=== PATIENT | female | born 1995 | race Caucasian/White ===

== ENCOUNTER → 2018-01-30 10:46 | Outpatient (CLI) | payer OTHER, SELFPAY ==
--- NOTE | 2018-01-30 10:49 | RAD_ITS ---
STUDY: X-RAY CHEST REASON FOR EXAM: Female, 22 years old. Cough and shortness of breath. TECHNIQUE: PA and lateral views of the chest. COMPARISON: None. FINDINGS: The lungs are clear and expanded. Scattered calcified granulomas. There is no demonstrated pleural abnormality. Normal size heart. Normal mediastinum and ivonne. Normal visualized pulmonary arteries. Normal visualized aortic arch and descending thoracic aorta. Normal visualized thoracic spine. Normal visualized ribs, clavicles, and shoulders. There is no demonstrated abnormality of the visualized soft tissue structures of the upper abdomen. RAD/Chest PA and Lateral IMPRESSION: Normal x-ray examination of the chest. Electronically Signed: Hari Mcduffie MD at 11:13 EDT Tel [phone], Service support ,
== END ==
PROVIDERS: Family Provider Pediatrics; PCP Pediatrics; Visit Provider Nurse Practitioner Pediatrics
DX: R05 Cough (principal)
CPT/HCPCS: 71046

== ENCOUNTER 2020-01-22 15:22 | Emergency (ER) | payer OTHER, SELFPAY ==
[2020-01-22 15:24] VITALS: BP 117/89; PULSE 119; RESP 16; TEMP 37.2; O2SAT 97; BMI 23.1
[2020-01-22] MEDS: Ibuprofen 600 MG Tablet PO (15:50)
--- NOTE | 2020-01-22 15:57 | RAD_ITS ---
STUDY: X-RAY CHEST REASON FOR EXAM: Female, 24 years old. FEVER, ANXIOUS, CHEST TIGHTNESS, SOB X2 DAYS TECHNIQUE: PA and lateral views of the chest. COMPARISON: Previous study of 01/30/2018 FINDINGS: The lungs are clear and expanded. There is no demonstrated pleural abnormality. Normal size heart. Normal mediastinum and ivonne. Normal visualized pulmonary arteries. Normal visualized aortic arch and descending thoracic aorta. Normal visualized thoracic spine. Normal visualized ribs, clavicles, and shoulders. There is no demonstrated abnormality of the visualized soft tissue structures of the upper abdomen. RAD/Chest PA and Lateral IMPRESSION: Normal x-ray examination of the chest. Electronically Signed: Juanpablo Corona MD at 16:24 EDT , Service support ,
[2020-01-22 16:03] LABS: Bacteria 0 SEEN /hpf (None Seen); Mucous, Urine 0 SEEN /hpf (<or=2+); Red Blood Cells-Urine 0 SEEN /hpf (0-5); White Blood Cells 0 SEEN /hpf (0-5)
[2020-01-22 16:09] LABS: Color, Urine Yellow (Yellow); Glucose, Dipstick Normal (Normal); Ketone-Dipstick Negative (Negative); Leukocyte Esterase-Dipstick Negative /ul (Negative); Nitrite-Dipstick Negative (Negative); Occult Blood-Urine Negative /ul (Negative); Protein-Dipstick Negative (Negative); Urine Bilirubin Dipstick Negative (Negative); Urine Clarity Sl. Cloudy (Clear); Urine Urobilinogen Normal (Normal)
[2020-01-22 16:10] LABS: Internal QC Validated? YES +Cl - CLEAR BKGD; Pregnancy, Urine Negative Negative
[2020-01-22 16:28] LABS: Squamous Epithelial Cells - UA 0-5 SEEN /hpf (5-10)
--- NOTE | 2020-01-22 16:40 | ED.VIS.GEN ---
History of Present Illness Chief Complaint: Fever Informant: Patient Onset: Today Context: Gradual Onset Timing: Intermittent Current Severity: Mild Maximum Severity: Mild Narrative: The patient is an otherwise healthy 24-year-old female with history of anxiety that presents to the emergency department with fever. Patient states she woke this morning and had some chills. She states took her temperature was 99.7. She did not take anything for the fever. She states that she felt like the fever broke because she began to sweat. The patient was concerned because she does have a job interview tomorrow. She denies chest pain. She denies shortness of breath. She has no known COVID-19 exposure. She is otherwise been in her normal state of health. Prior similar symptoms: No Recent Illness/Hospitalization: No Past Medical History - Allergies and Home Meds Allergies/Adverse Reactions: Allergies No Known Allergies Allergy (Verified 01/22/20 15:24) Primary Care Physician: Sayda Traore MD [Primary Care Provider] - Prior records reviewed: Yes Past Medical History: - - Anxiety Surgical History: noncontributory Smoking Status: Former smoker Review of Systems General: Reports: Fever, Malaise. Denies: Chills, Sweats Eyes: Denies: Visual changes - bilaterally, Diplopia ENT: Denies: Rhinorrhea, Sore throat Cardiovascular: Denies: Chest pain, Palpitations Respiratory: Denies: Dyspnea, Cough, Dyspnea on exertion Gastrointestinal: Denies: Abdominal pain, Nausea, Vomiting, Diarrhea, Melena, Hematochezia Genitourinary: Denies: Dysuria, Hematuria, Frequency Musculoskeletal: Denies: Back pain, Extremity Pain Skin: Denies: Rash, Wounds Neurological: Denies: Headache, Weakness, Numbness Physical Exam Vital Signs/Narrative: Vital Signs Temp Pulse Resp BP Pulse Ox 01/22/20 15:24 99.0 F 119 H 16 117/89 H 97 Inital Vital Signs reviewed: Yes General: Well nourished, Well developed, No Acute Distress Head: Normocephalic, Atraumatic Eyes: Perrl, EOMI ENT: Moist mucous membranes, No rhinorrhea Neck: Supple, Nontender Cardiovascular: Regular rate, Regular rhythm, No murmurs Respiratory: No distress, CTA bilaterally, Chest nontender Abdomen: Soft, Nontender, Nondistended, Normal bowel sounds Back: Nontender, Normal Inspection Extremities: Nontender, No edema Skin: Normal color, No rash Neurological: Alert, Oriented x3, Cranial nerves II-XII grossly intact, Normal Strength, Normal Sensation Psychological: Normal affect, Normal Mood Diagnostic/Tx/Re-eval Clinical Impression(s) from Imaging Studies Chest X-Ray 01/22/20 15:57 IMPRESSION: Normal x-ray examination of the chest. Electronically Signed: Juanpablo Corona MD at 16:24 EDT , Service support , - Medical Decision Making The patient is very well-appearing. She is afebrile here. She was given Motrin. She was observed. I did obtain chest x-ray with her scant cough. This was negative. Urine was also negative for infection. Patient was observed. She had resolution of her tachycardia. She is resting comfortably. At this point, I do not suspect a dangerous process. Patient was counseled on supportive care. She will be discharged home. Impression 1. Febrile illness ED Disposition - Plan for ED Patient: Instructions: ED Fever Control (Adult) Referrals: Sayda Traore MD [Primary Care Provider] -
[2020-01-22 16:54] VITALS: RESP 18; TEMP 37.1
== END 2020-01-22 16:55 | disposition home or self-care (01) ==
LOC: ED 16:00
PROVIDERS: Emergency Provider Emergency Medicine; PCP Pediatrics
DX: R50.9 Fever, unspecified (principal); R00.0 Tachycardia, unspecified; R05 Cough; F41.9 Anxiety disorder, unspecified; Z79.899 Other long term (current) drug therapy; Z87.891 Personal history of nicotine dependence
CPT/HCPCS: 71046; 81001; 81025; 99283

== ENCOUNTER 2020-05-02 18:22 | Emergency (ER) | payer OTHER, SELFPAY ==
[2020-05-02 18:25] VITALS: BP 122/81; PULSE 100; RESP 17; TEMP 36.2; O2SAT 98; BMI 23.1
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
[2020-05-02] MEDS: Ibuprofen 600 MG Tablet PO (19:09)
[2020-05-02] MEDS: Lidocaine 5% Patch 1 PATCH TOPICAL (19:09)
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
== END 2020-05-02 21:27 | disposition home or self-care (01) ==
PROVIDERS: Emergency Provider Student in an Organized Health Care Education/Training Program; PCP Student in an Organized Health Care Education/Training Program
DX: S16.1XXA Strain of muscle, fascia and tendon at neck level, initial encounter (principal); S39.012A Strain of muscle, fascia and tendon of lower back, initial encounter; R20.2 Paresthesia of skin; V89.2XXA Person injured in unspecified motor-vehicle accident, traffic, initial encounter; Y93.9 Activity, unspecified; Y92.9 Unspecified place or not applicable; Y99.9 Unspecified external cause status; Z79.899 Other long term (current) drug therapy
CPT/HCPCS: 72040; 72100; 99283

== ENCOUNTER 2020-10-18 08:47 | Emergency (ER) | payer SELFPAY ==
[2020-10-18 08:52] VITALS: BP 120/80; PULSE 143; RESP 17; TEMP 36.7; O2SAT 94; BMI 22.3
--- NOTE | 2020-10-18 09:10 | RAD_ITS ---
STUDY: X-RAY - LEFT FOOT CLINICAL: Female, 25 years old. Injury TECHNIQUE: 3 view(s) of the foot. COMPARISON: None. FINDINGS: There is no evidence of fracture or dislocation. There are no significant degenerative changes. There are no radiodense foreign bodies. RAD/Foot min 3 Views IMPRESSION: No fracture or dislocation. Electronically Signed: Lui Woodward MD at 9:23 EDT Tel , Service support ,
--- NOTE | 2020-10-18 09:37 | ED.DCSUM_ITS ---
History of Present Illness Chief Complaint: Lower Extremity Injury Informant: Patient Narrative: Patient sustained a left foot injury last evening. She was in a crouched position and her dog pulled her forward which resulted in a forced plantar flexion of her toes and foot. She notes some mild swelling. She notes pain with ambulation. Past Medical History - Allergies and Home Meds Allergies/Adverse Reactions: Allergies No Known Allergies Allergy (Verified 10/18/20 08:48) Primary Care Physician: Charlie Germain [Primary Care Provider] - Past Medical History: None Surgical History: noncontributory Lives: With Family Smoking Status: Former smoker Alcohol: None Drugs: None Review of Systems General: Denies: Chills, Fever, Sweats Eyes: Denies: Visual changes - bilaterally, Diplopia ENT: Denies: Rhinorrhea, Sore throat Cardiovascular: Denies: Chest pain, Palpitations Respiratory: Denies: Dyspnea, Cough, Dyspnea on exertion Gastrointestinal: Denies: Abdominal pain, Nausea, Vomiting, Diarrhea, Melena, Hematochezia Genitourinary: Denies: Dysuria, Hematuria, Frequency Musculoskeletal: Reports: Extremity Pain. Denies: Back pain Skin: Denies: Rash, Wounds Neurological: Denies: Headache, Weakness, Numbness Physical Exam Vital Signs/Narrative: Vital Signs Temp Pulse Resp BP Pulse Ox 10/18/20 08:52 98.1 F 143 H 17 120/80 94 Inital Vital Signs reviewed: Yes General: Well nourished, Well developed, No Acute Distress Head: Normocephalic, Atraumatic Eyes: Perrl, EOMI ENT: Moist mucous membranes, No rhinorrhea Neck: Supple, Nontender Cardiovascular: Regular rate, Regular rhythm, No murmurs Respiratory: No distress, CTA bilaterally, Chest nontender Abdomen: Soft, Nontender, Nondistended, Normal bowel sounds Back: Nontender, Normal Inspection Extremities: Tenderness - Tenderness over the forefoot on the left. Mild swell ing. No obvious deformity. Neurovascular intact Skin: Normal color, No rash Neurological: Alert, Oriented x3, Cranial nerves II-XII grossly intact, Normal Strength, Normal Sensation Psychological: Normal affect, Normal Mood Diagnostic/Tx/Re-eval Clinical Impression(s) from Imaging Studies Foot X-Ray 10/18/20 09:10 IMPRESSION: No fracture or dislocation. Electronically Signed: Lui Woodward MD at 9:23 EDT Tel , Service support , - Medical Decision Making My interpretation of the plain films of the left foot is no acute fracture. Patient will use Alexei wrap and ice. Motrin for pain. Follow-up 10 to 14 days if not improved. Patient declines crutches but states she will use a cane at home. ED Disposition - Plan for ED Patient: Disposition: Home or Assisted Living Diagnosis: Sprain of left foot Instructions: ED Foot Sprain Referrals: Charlie Germain [Primary Care Provider] - (in 10-14 days if not improved)
[2020-10-18 09:54] VITALS: BP 120/80; PULSE 80; RESP 18
== END 2020-10-18 10:00 | disposition home or self-care (01) ==
LOC: ED 09:46
PROVIDERS: Emergency Provider Emergency Medicine; PCP Student in an Organized Health Care Education/Training Program
DX: S93.602A Unspecified sprain of left foot, initial encounter (principal); X50.9XXA Other and unspecified overexertion or strenuous movements or postures, initial encounter; Y93.K9 Activity, other involving animal care; Y92.9 Unspecified place or not applicable; Y99.9 Unspecified external cause status; Z79.899 Other long term (current) drug therapy; Z87.891 Personal history of nicotine dependence
CPT/HCPCS: 73630; 99282

== ENCOUNTER 2024-09-20 20:10 | Emergency (ER) | payer SELFPAY ==
[2024-09-20 20:11] VITALS: BP 103/73; PULSE 72; RESP 16; TEMP 36.8; O2SAT 100; BMI 19.7
--- NOTE | 2024-09-20 20:42 | RAD_ITS ---
PROCEDURE: PELVIS 1 OR 2 VIEWS REASON FOR EXAM: Injury/pain TECHNIQUE: 1 view(s) of the pelvis. COMPARISON: None FINDINGS: No fracture or dislocation. Symmetric appearing SI joints and pubic symphysis appear within limits. RAD/Pelvis 1 or 2 Views IMPRESSION: No fracture or dislocation. Reading Location: [id number]
--- NOTE | 2024-09-20 20:43 | EDS_ITS ---
HPI History of Present Illness Chief Complaint: Fall Detail of Chief Complaint: Patient slipped sliding down on her buttocks. Informant: patient Onset/Context/Timing Onset: Today and Hours Mechanism/Context: Blunt Injury and Fall Location of pain/injuries: - (Neck pain, tailbone pain and head pain) Quality of Pain: Dull Location: Head, neck and buttocks Current Severity: Mild Maximum Severity: Moderate Worsened by: Sitting and palpation regarding buttocks, palpation neck and head nothing Relieved by: Has not taken anything Associated Symptoms Associated Symptoms: Negative for Parasthesias, Weakness, Loss of function, Inability to ambulate, Loss of consciousness or Amnesia Narrative Narrative: Patient is a 29-year-old female. She was going down the steps. She slipped landed on her buttocks and slid down the flight of steps. She denies hitting her head. She is not amnestic. She denies loss of conscious. She was not dazed. She presents now because of neck pain, top of her head hurting and tailbone pain. She has not had a bowel movement since the fall. She denies change in color urine. She denies double vision blurred vision loss of vision. She denies paresthesia, anesthesia or motor weakness upper lower extremity. She denies trouble with speech or swallowing. She denies chest pain. Denies shortness of breath. She denies abdominal pain. She denies low back pain. Prior similar symptoms: No Recent Illness/Hospitalization: No [facility] Medical History Back pain Chest pain Migraines Fatigue SOB (shortness of breath) Home Medications ?Medication ?Instructions ?Recorded ?Last Taken ?Type fluoxetine 20 mg capsule 30 mg PO DAILY 08/23/1607/27 History bupropion HCl 100 mg tablet,12 hr 100 mg PO DAILY 09/23 02/11 Unknown History sustained-release cholecalciferol (vitamin D3) 50 2 tablet PO DAILY 09/23 02/11 Unknown History mcg (2,000 unit) capsule cyanocobalamin (vitamin B-12) 250 250 mcg PO DAILY Unknown History mcg tablet magnesium 250 mg tablet 250 mg PO DAILY 10/18/20 Unk nown History ibuprofen 600 mg tablet 600 mg PO Q8H PRN PRN pain # 20 09/20/24 Unknown Rx TABLETS Allergy/AdvReac Type Severity Reaction Status Date / Time No Known Allergies Allergy Verified 09/20/24 20:11 Social History Smoking Status: Never smoker ROS ROS ED Constitutional Constitutional ED: Denies chills, fever(s) or subjective Eyes Eyes: Denies blurry vision or change in vision ENT ENT ED: Denies rhinorrhea or sore throat Cardiovascular Cardiovascular: Denies chest pain or palpitations Respiratory/Chest Respiratory/Chest: Denies cough, dyspnea or dyspnea on exertion Gastrointestinal Gastrointestinal: Denies abdominal pain, nausea or vomiting Genitourinary Genitourinary ED: Denies hematuria Musculoskeletal Musculoskeletal: Reports neck pain; Denies arthralgias, back pain or myalgias Integumentary Denies abscess or Abrasions Neurologic Neurologic: Reports headache(s); Denies paresthesias or weakness Psychiatric Psychiatric: Denies anxiety or depression Hematologic/Lymphatic Hematologic/Lymphatic: Denies easy bleeding or easy bruising EXAM Physical Exam Const Vital Signs: 09/20/24 20:11 09/20/24 21:48 Temperature 98.2 F Temperature Source Temporal Pulse Rate 72 Respiratory Rate 16 Respiratory Effort Normal Non-Labored Respiratory Depth Normal Respiratory Pattern Normal Blood Pressure 103/73 Blood Pressure Mean 83 Pulse Ox 100 Oxygen Delivery Method Room Air Room Air Positive well nourished and well developed General Appearance ED: well developed and NAD HEENT HEENT Narrative: Ears normal. TMs normal. No evidence of trauma to the head. No septal deviation hematoma. No evidence of dental trauma. atraumatic; Negative for tenderness Eyes PERRL and EOMs intact bilaterally General Eye ED: Yes other Other Details: No subconjunctival hemorrhage. Neck full ROM Neck Narrative: She has para cervical tenderness. There is no midline posterior neck pain. General: tenderness Chest Wall palpation of chest normal Resp normal respiratory effort and clear to auscultation bilaterally Cardio regular rhythm, S1 normal heart sound, S2 normal heart sound and no murmurs Rate: regular rate GI normal to inspection, nondistended, normoactive bowel sounds, non-tender, non- distended and no masses Palpation: soft Back/Spine normal to inspection Back/Spine Narrative: There is pain near the posterior iliac spine on the right. There is pain outpatient over the right and left ischial tuberosity. There is no pain over the sacrum or coccyx region. Extremity normal to inspection and full ROM Neuro oriented x3, CN's II-XII intact bilaterally, moves all extremities, no focal motor deficits, no sensory deficits noted and gait normal Jillian Coma Scale: document GCS findings Spontaneous Obeys Commands Oriented 15 Sensorium / Orientation: alert Plantar Reflex: Downgoing: bilateral Psych mental status grossly normal and thought process normal Skin no rashes or lesions noted, no wounds, skin turgor normal and no jaundice MDM MDM MDM Narrative Medical decision making narrative: Since there is no history of head trauma no loss of conscious not on antithrombotic or anticoagulant suspect this was a tension headache due to her cervical strain. Based on the CT Spreckels head rule imaging of the head is not indicated. There is no indication for imaging of the C-spine since she has no posterior midline pain. Because she has pain of the pelvis will obtain x-ray to assess for contusion versus fracture. Patient was offered pain medicine. She states she wanted nothing strong. She was prescribed ibuprofen. Based on her weight she received 600 mg. Review of prior records indicate she has a history of depression. She is on fluoxetine. History & Record Review Additional record(s) reviewed:: Prior outpatient record (Urgent care visit 2017 for upper respiratory infection.) and Prior ED visit (ER visit 2020 for foot strain, 2019 for foot pain and fever.) Radiography Chest X-Ray - ED: 1 View and Read by ED Physician (2314 pelvis x-ray was reviewed by me. No evidence of fracture or any significant arthritic changes.) Discharge Plan Triage Chief Complaint: Fall ED Provider: Lobito Salazar Dx/Rx/DC Orders Clinical Impression: Fall down stairs, Contusion of lower back and pelvis, initial encounter, Acute cervical myofascial strain, Acute tension headache Prescriptions: New ibuprofen 600 mg tablet 600 mg PO Q8H PRN PRN (Reason: pain) Qty: 20 0RF No Action fluoxetine 20 MG capsule 30 mg PO DAILY cyanocobalamin (vitamin B-12) 250 MCG tablet 250 mcg PO DAILY bupropion HCl 100 MG tablet sustained-release 12 hr 100 mg PO DAILY magnesium 250 MG tablet 250 mg PO DAILY cholecalciferol (vitamin D3) 2,000 UNIT capsule 2 tablet PO DAILY Primary Care Provider: Charlie Germain Referrals: Charlie Germain [facility] [[facility]] - 3-5 Days if not improving Activity Restrictions/Additional Instructions: 1. Apply ice to areas of discomfort 6-8 times a day 2. Take medication as prescribed 3. You may feel worse over the next 24 to 48 hours and hurt in more places and you presently do. Print Language: Sinhala Disposition Disposition: Home, Self Care
[2024-09-20] MEDS: Ibuprofen 600 MG Tablet PO (21:45)
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
== END 2024-09-20 22:47 | disposition home or self-care (01) ==
PROVIDERS: Emergency Provider Emergency Medicine; PCP Student in an Organized Health Care Education/Training Program; Visit Provider Emergency Medicine
DX: S16.1XXA Strain of muscle, fascia and tendon at neck level, initial encounter (principal); G44.209 Tension-type headache, unspecified, not intractable; S30.0XXA Contusion of lower back and pelvis, initial encounter; W10.9XXA Fall (on) (from) unspecified stairs and steps, initial encounter
CPT/HCPCS: 72170; 99282